=== PATIENT | male | born 1965 | race American Indian/Alaskan Native ===

== ENCOUNTER 2017-04-29 15:19 | Emergency (ER) | payer MEDICAID, OTHER ==
[2017-04-29] MEDS ORDERED: diphenhydrAMINE 50 MG Cap PO ONE (15:35)
[2017-04-29] MEDS ORDERED: predniSONE 20 MG Tab PO ONE (15:35)
[2017-04-29] MEDS ORDERED: Famotidine 20 MG Tab PO ONE (15:35)
--- NOTE | 2017-04-29 15:41 | EDM.PDOC ---
ED HPI GENERAL MEDICAL PROBLEM - General Chief Complaint: Allergic Reaction Stated Complaint: STUNG BY BEE/ALLERIC Time Seen by Provider: 04/29/17 15:31 Source of Information: Reports: Patient History Limitations: Reports: No Limitations - History of Present Illness INITIAL COMMENTS - FREE TEXT/NARRATIVE: The patient presents after a bee sting. He is allergic to them and needed to be hospitalized at one point. He has an epipen but it was outdated and he did not use it. The bee stung him in the left index finger. He has no problems swallowing. He has no rash. He did have some shortness of breath and tingling in his face initially but that is gone now. Onset: Sudden Duration: Minutes: Location: Reports: Upper Extremity, Left (index finger) Quality: Reports: Sharp Severity: Moderate Improves with: Reports: None Worsens with: Reports: None Context: Reports: Activity (He was at work) Associated Symptoms: Reports: Shortness of Breath. Denies: Confusion, Chest Pain, Cough, Fever/Chills, Nausea/Vomiting Left Middle 3-Middle finger Pain Score (Numeric/FACES): 10 - Related Data Allergies Allergy/AdvReac Type Severity Reaction Status Date / Time bee venom protein (honey bee) Allergy Swelling Verified 04/29/17 15:36 Home Meds: Home Meds EPINEPHrine [Epipen] 0.3 mg IM ONETIME PRN #1 pen 04/29/17 [Rx] Lisinopril 40 mg PO DAILY 04/29/17 [History] Meloxicam 7.5 mg PO DAILY 04/29/17 [History] Prednisone [IJD: predniSONE] 40 mg PO WITHBREAKFAST #10 tab 04/29/17 [Rx] ED ROS ALLERGIC REACTION - Review of Systems Review Of Systems: See Below Constitutional: Reports: No Symptoms HEENT: Reports: No Symptoms Respiratory: Reports: Shortness of Breath (Resolved now) Cardiovascular: Reports: No Symptoms Endocrine: Reports: No Symptoms GI/Abdominal: Reports: No Symptoms : Reports: No Symptoms Musculoskeletal: Reports: Other (Left index finger pain) ED EXAM GENERAL NO PERIP PULSE - Physical Exam Exam: See Below Exam Limited By: No Limitations General Appearance: Alert, No Apparent Distress Ears: Normal External Exam Nose: Normal Inspection Throat/Mouth: Normal Inspection Head: Atraumatic, Normocephalic Neck: Normal Inspection Respiratory/Chest: No Respiratory Distress, Lungs Clear, Normal Breath Sounds Cardiovascular: Regular Rate, Rhythm, No Edema, No Murmur GI/Abdominal: Soft, Non-Tender, No Organomegaly, No Mass Back Exam: Normal Inspection Extremities: Normal Inspection Neurological: Alert, Oriented, No Motor/Sensory Deficits Course - Vital Signs Last Recorded V/S: Last Vital Signs Temp 98.5 F 04/29/17 15:30 Pulse 72 04/29/17 15:30 Resp 20 04/29/17 15:30 BP 156/94 H 04/29/17 15:30 Pulse Ox 98 04/29/17 15:30 - Orders/Labs/Meds Meds: Medications Discontinued Medications Generic Name Dose Route Start Last Admin Trade Name Freq PRN Reason Stop Dose Admin Diphenhydramine HCl 50 mg 04/29/17 15:35 04/29/17 15:49 Benadryl PO 04/29/17 15:36 50 mg ONETIME ONE Administration Famotidine 20 mg 04/29/17 15:35 04/29/17 15:49 Pepcid PO 04/29/17 15:36 20 mg ONETIME ONE Administration Prednisone 40 mg 04/29/17 15:35 04/29/17 15:49 Prednisone PO 04/29/17 15:36 40 mg ONETIME ONE Administration - Re-Assessments/Exams Free Text/Narrative Re-Assessment/Exam: 04/29/17 15:43 I ordered prednisone 40mg, benadryl 50mg, and pepcid 20mg by mouth. 04/29/17 16:15 He is doing good. He would like to go. I will discharge him home with some prednisone and a prescription for an epipen. Departure - Departure Time of Disposition: 16:15 Disposition: Home, Self-Care 01 Condition: Good Clinical Impression: Bee sting allergy - Discharge Information Prescriptions: EPINEPHrine [Epipen] 0.3 mg IM ONETIME PRN #1 pen PRN Reason: Allergies Prednisone [IJD: predniSONE] 40 mg PO WITHBREAKFAST #10 tab Referrals: Karyn Narvaez MD [Primary Care Provider] - Forms: ED Department Discharge Additional Instructions: Take the prednisone daily for 5 days. Take pepcid 20mg daily for 5 days. Take benadryl 50mg every 6 hours as needed for any itching or rash. Please return if you are worse.
== END 2017-04-29 16:30 | disposition home or self-care (01) ==
LOC: JD.ED 15:19
DX: T63.441A Toxic effect of venom of bees, accidental (unintentional), initial encounter (principal); Z79.899 Other long term (current) drug therapy
CPT/HCPCS: 99282; A9270; 99283